=== PATIENT | female | born 1955 | race Asian ===

== ENCOUNTER 2016-06-27 09:40 | Inpatient (IN) | payer SELFPAY ==
[~2016-06-27] VITALS: Ht 157.5 cm; Wt 51.8 kg
[2016-06-27] MEDS ORDERED: PROP20TA PO (10:04)
[2016-06-27] MEDS ORDERED: METF500T4 PO (10:04)
[2016-06-27] MEDS ORDERED: ASPI-515 PO (10:04)
[2016-06-27] MEDS ORDERED: AMLO5TAB4 PO (10:04)
[2016-06-27] MEDS ORDERED: SODIUM CHLORIDE 0.9% 1,000 ML IV ONE (10:07)
[2016-06-27] MEDS ORDERED: FENTANYL PF 100 MCG/2ML ONE (10:28)
[2016-06-27] MEDS ORDERED: NITROGLYCERIN 5 MG/ML, 10ML ONE (10:28)
[2016-06-27] MEDS ORDERED: VERAPAMIL 2.5 MG/ML, 2ML ONE (10:28)
[2016-06-27] MEDS ORDERED: MIDAZOLAM 1 MG/ML, 5ML ONE (10:28)
[2016-06-27] MEDS ORDERED: HEPARIN 1,000 UNITS/ML, 10ML ONE (10:29)
[2016-06-27] MEDS ORDERED: TICAGRELOR 90 MG TABLET ONE (10:29)
[2016-06-27] MEDS ORDERED: BIVALIRUDIN 250 MG ONE (10:29)
[2016-06-27] MEDS ORDERED: LIDOCAINE 2%, 20ML ONE (10:29)
[2016-06-27] MEDS ORDERED: SODIUM CHLORIDE FLUSH 10ML SYR IVF ONE (10:30)
[2016-06-27] MEDS ORDERED: NITROGLYCERIN SINGLE TAB 0.4 MG SL PRN (10:30)
[2016-06-27] MEDS ORDERED: ASPIRIN 81 MG TABLET CHEW PO ONE (10:30)
[2016-06-27] MEDS ORDERED: SODIUM CHLORIDE FLUSH 10ML SYR IVF PRN (10:30)
[2016-06-27 10:41] LABS: HEMOGLOBIN 14.8 g/dL (11.7-16.4)
[2016-06-27 10:53] LABS: BLOOD UREA NITROGEN 14 mg/dL (7-18)
[2016-06-27 10:54] LABS: ASPARTATE AMINO TRANSFERASE 23 U/L (15-37)
[2016-06-27 10:58] LABS: IS PT STATUS REG ER OR PRE ER? YES
[2016-06-27 11:23] VITALS: BP 93/52
[2016-06-27 15:14] VITALS: BP 125/79
[2016-06-27 17:59] LABS: IS PT STATUS REG ER OR PRE ER? NO
[2016-06-27 20:00] VITALS: BP 116/74
[2016-06-28 03:16] VITALS: BP 103/58
[2016-06-28 05:27] LABS: HEMOGLOBIN 14.2 g/dL (11.7-16.4)
[2016-06-28 05:34] LABS: BLOOD UREA NITROGEN 16 mg/dL (7-18)
[2016-06-28 06:52] VITALS: BP 106/67
== END 2016-06-28 11:30 | disposition home or self-care (01) | DRG 287 ==
LOC: ED 10:22 → EDIP 10:24 → 5SO 11:14 → DCLOUNGE 06-28 10:42
PROVIDERS: ADMIT Internal Medicine Cardiovascular Disease; ATTEND Internal Medicine Cardiovascular Disease
PROC: 4A023N7 Measurement of Cardiac Sampling and Pressure, Left Heart, Percutaneous Approach (ICD-10-PCS; principal; 2016-06-27)
PROC: B2111ZZ Fluoroscopy of Multiple Coronary Arteries using Low Osmolar Contrast (ICD-10-PCS; 2016-06-27)
PROC: B2151ZZ Fluoroscopy of Left Heart using Low Osmolar Contrast (ICD-10-PCS; 2016-06-27)
DX: R07.9 Chest pain, unspecified (principal); E11.9 Type 2 diabetes mellitus without complications; E78.5 Hyperlipidemia, unspecified; I10 Essential (primary) hypertension; Z79.84 Long term (current) use of oral hypoglycemic drugs; Z79.899 Other long term (current) drug therapy
CPT/HCPCS: 36415; 80048; 80053; 82040; 82962; 83690; 84484; 85014; 85018; 85025; 93005; 93458; C1760; C1894; J0583; J1644; J2250; J3010; J3490; J7030; Q9967